=== PATIENT | male | born 1980 | race Caucasian/White ===

== ENCOUNTER 2018-07-06 11:20 | Emergency (ER) | payer MEDICAID ==
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
[2018-07-06 13:24] VITALS: BP 104/71
== END 2018-07-06 13:30 | disposition home or self-care (01) ==
DX: S20.222A Contusion of left back wall of thorax, initial encounter (principal); V09.9XXA Pedestrian injured in unspecified transport accident, initial encounter; Y92.481 Parking lot as the place of occurrence of the external cause